=== PATIENT | male | born 2000 | race Caucasian/White ===

== ENCOUNTER 2021-12-12 19:59 | Emergency (ER) | payer OTHER ==
[~2021-12-12] VITALS: Ht 182.9 cm; Wt 75.0 kg
[~2021-12-12 19:59] MED LIST: /AUGM25TA; DARV100T; No Historical Meds
[2021-12-12] MEDS ORDERED: BACITRACIN OINTMENT 30GM TUBE TOP STA (21:21)
[2021-12-12 21:59] LABS: RSV AMPLIFICATION NEGATIVE (NEGATIVE)
[2021-12-12 22:06] VITALS: BP 139/80
== END 2021-12-12 22:08 | disposition short-term general hospital (02) ==
LOC: M ED 19:59
DX: T23.301A Burn of third degree of right hand, unspecified site, initial encounter (principal); T31.0 Burns involving less than 10% of body surface; X08.8XXA Exposure to other specified smoke, fire and flames, initial encounter; Y92.099 Unspecified place in other non-institutional residence as the place of occurrence of the external cause; Y93.89 Activity, other specified; Y99.9 Unspecified external cause status; F17.200 Nicotine dependence, unspecified, uncomplicated